=== PATIENT | female | born 1970 | race Caucasian/White ===

== ENCOUNTER 2024-11-03 13:14 | Outpatient (AMB) | payer MEDICARE, SELFPAY ==
--- NOTE | 2024-11-03 13:17 | MHC.PC.OV ---
Vital Signs 11/03/24 13:23 Height 5 ft 1.02 in Weight 128 lb 2 oz BMI 24.2 BP 98/74 Blood Pressure Location Rt brachial Position Sitting Pulse 104 H Pulse Source Pulse Oximeter Pulse Oximetry (%) 98 Oxygen Delivery Method Room Air Intake Visit Reasons: est care Intake Note: New patient visit Ram Press Operator Required: No Allergies No Known Allergies Allergy (Verified 11/03/24 13:17) Medication List - Last Reconciled 11/03/24 by Lola Grace PA-C bupropion HCl SR (Wellbutrin SR) 150 mg PO BID estradiol 1 mg PO DAILY hydroxyzine HCl 25 mg PO BEDTIME lamotrigine 100 mg PO BID risperidone 2 mg PO DAILY Tobacco use date assessed: 11/03/24 Dental Screening Dental Screen Date: 11/03/24 Did you have a dental visit in the last 12 months?: Yes Did you have a dental problem in the last 6 months where you did not have access to dental care?: No Was dental information given to patient?: Patient has dentist HPI est care HPI Details Patient is a 54-year-old female with a significant past medical history of anxiety, depression, complicated grief, migraines, back and neck pain presenting today to [facility]. She is transferring from [facility]. Psych: Currently managed with Wellbutrin, hydroxyzine prn, lamotrigine and risperidone prn. Follows with [facility]. She states that she used to have more ?normal ?mood disorder around her menses and was on Lamictal for years because of that. She states that she had a major, traumatic life experience that she can not discuss happen a few years ago and since then has started to take the hydroxyzine as needed, was put on Wellbutrin and the risperidone for really bad days. No current SI/HI. 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 He does not want her to go back to work. She lives at home with her and her 25-year-old daughter who just became a nurse practitioner. Her other daughter is 34 and an mine engineering manager. CV: Blood pressure today in the office is 98/74. States that she has never had issues with hypertension or dyslipidemia. No chest pain, shortness on breath or palpitations. At times she does get lightheaded if she gets up quickly. She does admit that she possibly does not drink enough water. Neuro: follows with neurology and pss for botox injections to control her migraines. She has had an MRI. Mammo: UTD, collier- does not want to do them anymore Animal Shelter Worker: Dr. Meyer UTVickie Colonoscopy: never had, does not want to do them PFS Surgical History H/O breast augmentation Family History (Updated 11/03/24 @ 13:22 by Britany Powers CMA) Father Migraine Mother Dementia Pseudomyxoma peritonei Sister Substance abuse Other FH: mental illness Social History (Updated 11/03/24 @ 13:23 by Britany Powers CMA) Housing: House Alcohol intake: never Patient Tobacco Use Status: Never used Tobacco e-Cigarette/Vaping Use: Never Used Second Hand Smoke Exposure: No service: No Current occupational status: retired Cognitive needs: No Hearing needs: No Vision needs: No Physical exam (Primary Care) Vital Signs: Last Vital Signs Pulse 104 H 11/03/24 13:23 BP 98/74 11/03/24 13:23 Pulse Ox 98 11/03/24 13:23 Oxygen Delivery Method Room Air 11/03/24 13:23 BMI result Body Mass Index 24.2 Tobacco/Smoking Status: Tobacco use Status Tobacco use date assessed 11/03/24 11/03/24 13:30 Patient Tobacco Use Status Never used Tobacco 11/03/24 13:30 e-Cigarette/Vaping Use Never Used 11/03/24 13:30 Const Orientation/consciousness: patient oriented x3 HENMT Ears: hearing grossly normal bilaterally Neck Thyroid: Thyroid normal Lymphatic: no lymphadenopathy noted Resp Auscultation: clear to auscultation bilaterally Cardio Rate: regular rate Rhythm: regular rhythm Heart sounds: S1 normal heart sound present and S2 normal heart sound present GI Inspection: Yes normal to inspection Palpation (GI): Soft to palpation and Other GI palpation findings present (nontender, no cva tenderness) Auscultation: normoactive bowel sounds Rectal Exam - Female: deferred Skin General skin exam: no rashes or lesions noted Neuro General: patient oriented x3, gait normal and no focal motor deficits Office Procedures EKG Details: EKG today is normal sinus rhythm at a rate of 86 beats per minute with nonspecific STT wave abnormalities. No prior study to compare. EKG interpreted myself and Dr. French. [id number], Complete Results Reviewed Results Reviewed: EKG in office Coding Level of Care Code New Pt Level 4 (13409) Complex EM visit Add On G2211 Diagnoses Anxiety with depression F41.8 Migraine headache with aura G43.109 Episodic lightheadedness R42 CPT Codes EKG - CPT: 28451-[id number], Complete ([id number]) Assessment & Plan Assessment & Plan (1) Anxiety with depression: Code(s): F41.8 - Other specified anxiety disorders Category: Medical Plan: Following with the [facility] (2) Migraine headache with aura: Code(s): G43.109 - Migraine with aura, not intractable, without status migrainosus Category: Medical Plan: Following with [facility] for Botox injections. Currently controlled with injections. (3) Episodic lightheadedness: Code(s): R42 - Dizziness and giddiness Category: Medical Plan: EKG in office listed above. Orthostatic WNL. Advised patient to hydrate. Labs ordered. We will follow up pending test results. Orders: Orders Comprehensive Met. Panel Today F41.8 - Other specified anxiety disorders, G43.109 - Migraine with aura, not intractable, without status migrainosus, R42 - Dizziness and giddiness Complete Blood Count Auto Diff Today F41.8 - Other specified anxiety disorders, G43.109 - Migraine with aura, not intractable, without status migrainosus, R42 - Dizziness and giddiness Vitamin B12 and Folate Today F41.8 - Other specified anxiety disorders, G43.109 - Migraine with aura, not intractable, without status migrainosus, R42 - Dizziness and giddiness AMB EKG-In Office Today R42 - Dizziness and giddiness TSH reflex Free T4 Today F41.8 - Other specified anxiety disorders, G43.109 - Migraine with aura, not intractable, without status migrainosus, R42 - Dizziness and giddiness Lipid Panel Today F41.8 - Other specified anxiety disorders, G43.109 - Migraine with aura, not intractable, without status migrainosus, R42 - Dizziness and giddiness Magnesium Today F41.8 - Other specified anxiety disorders, G43.109 - Migraine with aura, not intractable, without status migrainosus, R42 - Dizziness and giddiness
[2024-11-03 13:23] VITALS: BP 98/74; PULSE 104; O2SAT 98; BMI 24.2
--- OUTSIDE RECORDS SUMMARY | 2024-11-09 02:20 | XMS_ITS | Continuity of Care Document ---
Author Organization [facility] Address [address] [place] [address] [address] [place] [phone] Phone Care Team Providers Care Rack Production Worker Name Role Phone James GRECO, SANTOS, Marty TOWNSEND Unavailable U navailable Advance Directives Directive Yes / No Effective Date File Name No Information Encounters Encounter Description Practice Location Reason(s) For Visit Diagnoses Date Provider Providers Copied on Encounter [facility], [address] [place] [address] [address], [place], [id number], tel:[phone] [facility] No Information 4 James GRECO, CARY GRAHAM. [address] [place] [address], [place], [place], [id number] , . tel:[phone] Family History Family Member Type Diagnosis Age At Onset No Information Payers Payer name Insurance type Covered alliance party ID Authoriza tion(s) No Information Social History Type Description Quantity Date Captured Comments Sex Female Smoking Status No Information Chief Complaint And Reason For Visit No Information Reason For Referral Reason For Referral No Information History Of Present Illness Encounter Date Complaint History Of Prese nt Illness No Information Functional Status Date Functional Assessmen t No Information Instructions Date Instruction Additional Infor mation No Information Assessments Type Assessment Date No Information Patient Care Teams Name Effective Dates (start - stop) Status Members No Information
== END 2024-11-03 14:23 | disposition home or self-care (01) ==
PROVIDERS: PCP Physician Assistant; Visit Provider Physician Assistant
DX: F41.8 Other specified anxiety disorders (principal); G43.109 Migraine with aura, not intractable, without status migrainosus; R42 Dizziness and giddiness

== ENCOUNTER → 2024-11-03 13:14 | Outpatient (BNVA) | payer MEDICARE, SELFPAY | PROVIDERS: PCP Physician Assistant; Visit Provider Physician Assistant | DX: Z13.6 Encounter for screening for cardiovascular disorders (principal); F41.8 Other specified anxiety disorders; R42 Dizziness and giddiness; G43.109 Migraine with aura, not intractable, without status migrainosus | CPT/HCPCS: 36415; 80053; 80061; 82607; 82746; 83735; 84443; 85025; 93005; 99202 ==

== ENCOUNTER 2024-11-03 14:22 | Outpatient (REF) | payer MEDICARE, SELFPAY ==
[2024-11-03 17:32] LABS: MANUAL DIFF FLAG NO
[2024-11-03 17:51] LABS: Basophils Percent Auto 0.7 % (0-2); Eosinophils Absolute Auto 0.1 X10*3/uL (0.0-0.4); Eosinophils Percent Auto 1.6 % (0-4); Hemoglobin 12.2 g/dl (12.0-16.0); Lymphocytes Absolute Auto 1.6 X10*3/uL (1.2-4.9); Lymphocytes Percent Auto 34.4 % (20-40); Mean Corpuscular HGB Conc 33.9 g/dl (31.0-35.0); Mean Corpuscular Hemoglobin 30.4 pg (27.0-33.0); Mean Corpuscular Volume 89.8 fL (80.0-98.0); Monocytes Absolute Auto 0.3 X10*3/uL (0.1-1.2); Monocytes Percent Auto 5.8 % (2-11); Neutrophils Absolute Auto 2.6 x10*3/uL (2.0-8.3); Neutrophils Percent Auto 57.5 % (45-73); Platelet Count 282 X10*3/uL (160-400); Red Blood Count 4.01 X10*6/uL (4.20-5.50); Red Cell Distribution Width 11.9 % (11.0-16.0); White Blood Count 4.5 X10*3/uL (4.8-10.8)
[2024-11-03 18:13] LABS: Alanine Aminotransferase 17 U/L (0-31); Albumin Level 4.4 g/dL (3.5-5.0); Alkaline Phosphatase 42 U/L (39-117); Anion Gap 9 (12-20); Aspartate Amino Transferase 22 U/L (5-31); Bilirubin Total 0.5 mg/dL (0.0-1.0); Blood Urea Nitrogen 11 mg/dL (9-16); Calcium 9.2 mg/dL (8.4-10.2); Carbon Dioxide 28 mmol/L (22-29); Chloride 107 mmol/L (96-108); Cholesterol 215 mg/dL (<200); Estimated Glomerular Filt Rate 48; Glucose Random 79 mg/dL (60-115); HDL Cholesterol 65 mg/dL (>40); LDL Cholesterol Calculated 136 mg/dL (<100); Magnesium 2.2 mg/dL (1.6-2.6); Potassium 3.7 mmol/L (3.3-5.1); Sodium 140 mmol/L (135-145); Total Protein 6.8 g/dL (6.5-8.0); Triglycerides 73 mg/dL (<150)
[2024-11-03 18:27] LABS: TSH reflex Free T4 1.61 uIU/mL (0.32-4.0)
[2024-11-03 18:41] LABS: Folate 11.6 ng/mL (> or = 4.0); Vitamin B12 775 pg/mL (200-900)
--- OUTSIDE RECORDS SUMMARY | 2024-11-09 04:03 | XMS_ITS | Continuity of Care Document ---
Author Organization [facility] Address [address] [place] [address] [address] [place] [phone] Phone Care Team Providers Care Environmental Services Coordinator Name Role Phone James GRECO, SANTOS, Marty TOWNSEND Unavailable U navailable Advance Directives Directive Yes / No Effective Date File Name No Information Encounters Encounter Description Practice Location Reason(s) For Visit Diagnoses Date Provider Providers Copied on Encounter [facility], [address] [place] [address] [address], [place], [id number], tel:[phone] [facility] No Information 4 James GRECO, CARY GRAHAM. [address] [place] [address], [place], [place], [id number] , . tel:[phone] Family History Family Member Type Diagnosis Age At Onset No Information Payers Payer name Insurance type Covered democrat ID Authoriza tion(s) No Information Social History [...]
== END 2024-11-03 14:23 | disposition home or self-care (01) ==
LOC: HO.WFDLDS 14:22
PROVIDERS: Visit Provider Physician Assistant
DX: Z13.89 Encounter for screening for other disorder (principal)
CPT/HCPCS: 36415; 80053; 80061; 82607; 82746; 83735; 84443; 85025

== ENCOUNTER 2025-04-18 08:40 | Outpatient (REF) | payer MEDICARE, SELFPAY ==
--- NOTE | ~2025-04-18 | US_ITS ---
EXAMINATION: MM DIAGNOSTIC DIGITAL BREAST TOMOSYNTHESIS, BILATERAL Limited left breast ultrasound. CLINICAL INFORMATION: Left breast palpable lump. Priors from outside institution. Patient has had a 20 pound weight loss. Right implant has moved laterally and the patient having implants redone in July. COMPARISON: Mammography: Comparison is made with relevant prior exams. TECHNIQUE: Digital breast mammography with tomosynthesis is performed in both the craniocaudal and mediolateral oblique views along with computer-aided detection (CAD). FINDINGS: The breasts are heterogeneously dense, which may obscure small masses (ACR BI-RADS breast composition Category c). Bilateral slightly distorted implants without gross abnormality. BB marker in the upper central breast in the area of patient's palpable left breast lump without underlying abnormality. There are no significant masses, abnormal calcifications, or other abnormalities. Targeted color Doppler ultrasound scanning in the area the patient's left breast palpable lump demonstrates a subdermal hypoechoic oval area looks like adjacent simple to minimally complicated cysts with intervening breast tissue. There is no internal vascular flow. This resides at 11:00 7 cm from nipple measures 6 x 4 x 6 mm. Results are provided to the patient at time of visit by the technologist. US/US breast LT limited mamm only IMPRESSION: Left: Area of adjacent simple to minimally complicated cysts with intervening breast tissue versus solid mass at 11:00 7 cm from the nipple. Recommend 6 month follow-up ultrasound for further evaluation of stability. Right: Benign. ASSESSMENT: BI-RADS BI-RADS 3 - Probably benign finding(s) - 6 month follow-up suggested RECOMMENDATION: 6 Month F/U This patient's information was entered into a reminder system with a target due date for their next mammogram. Electronically signed by: Dannielle Sy DO 04/18/2025 10:54 AM EDT
== END 2025-04-18 08:41 | disposition home or self-care (01) ==
LOC: HO.MAMMO 08:40
PROVIDERS: PCP Physician Assistant; Visit Provider Physician Assistant
DX: N63.22 Unspecified lump in the left breast, upper inner quadrant (principal)
CPT/HCPCS: 76642; 77062; 77066

== ENCOUNTER → 2025-04-18 09:30 | Outpatient (BNV) | payer MEDICARE, SELFPAY | PROVIDERS: PCP Physician Assistant; Visit Provider Internal Medicine | DX: N63.20 Unspecified lump in the left breast, unspecified quadrant (principal); N60.12 Diffuse cystic mastopathy of left breast | CPT/HCPCS: 76642; 77066; G0279 ==

== ENCOUNTER 2025-08-17 09:58 | Outpatient (REF) | payer MEDICARE, SELFPAY ==
[2025-08-17 14:42] LABS: MANUAL DIFF FLAG NO
[2025-08-17 14:44] LABS: Hematocrit 36.8 % (37.0-47.0); Hemoglobin 12.5 g/dl (12.0-16.0); Imm Gran Abs Auto 0.01 X10*3/uL (0.00-0.03); Imm Gran Pct Auto 0.2 % (0.0-0.4); Lymphocytes Absolute Auto 1.1 X10*3/uL (1.2-4.9); Mean Corpuscular HGB Conc 34.0 g/dl (31.0-35.0); Mean Corpuscular Hemoglobin 31.3 pg (27.0-33.0); Mean Corpuscular Volume 92.2 fL (80.0-98.0); NRBC Abs Auto 0.000 X10*3/uL (0.0-0.012); NRBC Pct Auto 0.0 /100WBC (0.0-0.2); Platelet Count 266 X10*3/uL (160-400); Red Blood Count 3.99 X10*6/uL (4.20-5.50); White Blood Count 4.6 X10*3/uL (4.8-10.8)
[2025-08-17 14:51] LABS: INTERNATIONAL NORM RATIO 0.8 (0.9-1.1); Prothrombin Time 9.6 SEC (10.9-12.4)
[2025-08-17 15:04] LABS: Alanine Aminotransferase 33 U/L (0-31); Albumin Level 4.3 g/dL (3.5-5.0); Alkaline Phosphatase 57 U/L (39-117); Anion Gap 8 (12-20); Aspartate Amino Transferase 39 U/L (5-31); Blood Urea Nitrogen 12 mg/dL (9-16); Calcium 8.9 mg/dL (8.4-10.2); Carbon Dioxide 30 mmol/L (22-29); Chloride 107 mmol/L (96-108); Estimated Glomerular Filt Rate 55; Potassium 4.2 mmol/L (3.3-5.1); Sodium 141 mmol/L (135-145); Total Protein 6.6 g/dL (6.5-8.0)
== END 2025-08-17 09:59 | disposition home or self-care (01) ==
LOC: HO.WFDLDS 09:58
PROVIDERS: PCP Physician Assistant; Visit Provider Physician Assistant
DX: Z01.818 Encounter for other preprocedural examination (principal); Z98.82 Breast implant status; Z79.899 Other long term (current) drug therapy
CPT/HCPCS: 36415; 80053; 85025; 85610; 93005; 99212

== ENCOUNTER 2025-08-17 09:58 | Outpatient (AMB) | payer MEDICARE, SELFPAY ==
--- NOTE | 2025-08-17 10:00 | A.OFFPC_ITS ---
Vital Signs 08/17/25 10:12 Height 5 ft 1.02 in Weight 133 lb BMI 25.1 BP 104/66 Blood Pressure Location Lt brachial Position Sitting Respiration 12 Pulse 81 Pulse Source Pulse Oximeter Temp 97.7 F Temp Source Oral Pulse Oximetry (%) 98 Oxygen Delivery Method Room Air Intake Visit Reasons: Breast Augmentation surgery Intake Note: Breast Augmentation. Dr Ramos, plastic surgeon. Hardware Installer Required: No Allergies No Known Allergies Allergy (Verified 08/17/25 10:03) Medication List - Last Reconciled 08/17/25 by Lola Grace PA-C bupropion HCl SR (Wellbutrin SR) 150 mg PO BID estradiol 1 mg PO DAILY hydroxyzine HCl 25 mg PO BEDTIME lamotrigine 100 mg PO BID risperidone 2 mg PO DAILY Tobacco use date assessed: 11/03/24 Dental Screening Dental Screen Date: 11/03/24 HPI Breast Augmentation surgery HPI Details Patient is a 55-year-old female with a significant past medical history of anxiety, depression, complicated grief, migraines, back and neck pain presenting today for a pre op. She is scheduled with Dr. Ramos on 08/22/25 at [facility] for a breast augmentation. She had a previous augmentation 24 years ago. She is up-to-date on her mammogram and recently had an ultrasound for a possible left breast lump which was felt to be the plug of the saline implant. She will be having silicone implants. She denies any chest pain, shortness on breath or palpitations. No dizziness. No issues with previous surgery. No issues with previous episodes of anesthesia. No issues with bleeding in the past. She works out every day without any difficulty. She can go up and down a flight of stairs without issue and does cardio and weightlifting. Psych: Currently managed with Wellbutrin, hydroxyzine prn, lamotrigine and risperidone prn. Follows with [facility]. No current SI/HI. 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 He does not want her to go back to work. She lives at home with her and her 25-year-old daughter who just became a nurse practitioner. Her other daughter is 34 and an contractor general engineering. CV: Blood pressure today in the office is 104/66. States that she has never had issues with hypertension or dyslipidemia. No chest pain, shortness on breath or palpitations. Neuro: follows with neurology and pss for botox injections to control her migraines. She has had an MRI. Mammo: UTD, collier- Wastewater Analyst: Dr. Betsy FARLEY Colonoscopy: never had, does not want to do them [facility] Surgical History H/O breast augmentation Family History Father Migraine Mother Dementia Pseudomyxoma peritonei Sister Substance abuse Other FH: mental illness Social History (Updated 08/17/25 @ 10:13 by Britany Powers CMA) Housing: House Alcohol intake: never Patient Tobacco Use Status: Never used Tobacco e-Cigarette/Vaping Use: Never Used Second Hand Smoke Exposure: No Use of substances other than those prescribed or required for medical reasons: No service: No Current occupational status: retired Cognitive needs: No Hearing needs: No Vision needs: No Questionnaire PHQ-9 Over the last 2 weeks, how often have you been bothered by any of the following problems? 1. Little interest or pleasure in doing things: nearly every day 2. Feeling down, depressed, or hopeless: nearly every day 3. Trouble falling or staying asleep, or sleeping too much: nearly every day 4. Feeling tired or having little energy: nearly every day 5. Poor appetite or overeating: nearly every day 6. Feeling bad about yourself - or that you are a failure or have let yourself or your family down: nearly every day 7. Trouble concentrating on things, such as reading the newspaper or watching television: nearly every day 8. Moving or speaking so slowly that other people could have noticed. Or the opposite - being so fidgety or restless that you have been moving around a lot more than usual: not at all Source: Developed by Drs. Marty Day, Ondina Rojas, Omar Piper and colleagues, with an educational feliz from [employer]. Physical exam (Primary Care) Vital Signs: Last Vital Signs Temp 97.7 F 08/17/25 10:12 Pulse 81 08/17/25 10:12 Resp 12 08/17/25 10:12 BP 104/66 08/17/25 10:12 Pulse Ox 98 08/17/25 10:12 Oxygen Delivery Method Room Air 08/17/25 10:12 BMI result Body Mass Index 25.1 Tobacco/Smoking Status: Tobacco use Status Tobacco use date assessed 11/03/24 08/17/25 10:02 Patient Tobacco Use Status Never used Tobacco 08/17/25 10:13 e-Cigarette/Vaping Use Never Used 08/17/25 10:13 Const Orientation/consciousness: patient oriented x3 HENMT Ears: hearing grossly normal bilaterally Neck Thyroid: Thyroid normal Lymphatic: no lymphadenopathy noted Resp Auscultation: clear to auscultation bilaterally Cardio Rate: regular rate Rhythm: regular rhythm Heart sounds: S1 normal heart sound present and S2 normal heart sound present Skin General skin exam: no rashes or lesions noted Neuro General: patient oriented x3, gait normal and no focal motor deficits Office Procedures EKG Details: EKG today in office is normal sinus rhythm at a rate of 55 beats per minute with nonspecific STT wave abnormalities. No significant change from prior study. EKG interpreted myself and Dr. Ramirez. [id number], Complete Results Reviewed Results Reviewed: Laboratory Tests 11/03/24 14:25 WBC 4.5 L RBC 4.01 L Hgb 12.2 Hct 36.0 L Plt Count 282 Sodium 140 Potassium 3.7 Chloride 107 Carbon Dioxide 28 Anion Gap 9 L BUN 11 Creatinine 1.18 Estimated GFR 48 Random Glucose 79 Calcium 9.2 Magnesium 2.2 Total Bilirubin 0.5 Coding Level of Care Code Est Pt Level 4 (12304) Complex EM visit Add On G2211 Diagnoses Pre-op exam Z01.818 H/O breast augmentation Z98.82 CPT Codes EKG - CPT: 68384-Bhzbxemsygvmwwzlh, Complete ([id number]) Assessment & Plan Assessment & Plan (1) Pre-op exam: Code(s): Z01.818 - Encounter for other preprocedural examination Category: Medical Plan: Patient is at average risk for this moderate at risk procedure. She is cleared for breast augmentation surgery. I have ordered labs for her to complete today including CBC, CMP, PT INR. We will fax over updated labs once they are in the system. Previous labs from within the year have been normal. EKG is normal sinus rhythm at a rate of 74 beats per minute with nonspecific STT wave abnormalities. No significant change from prior study. (2) H/O breast augmentation: Code(s): Z98.82 - Breast implant status Category: Surgical Plan: As above Orders: Orders Comprehensive Met. Panel Today Z01.818 - Encounter for other preprocedural examination, Z98.82 - Breast implant status Prothrombin Time INR Today Z01.818 - Encounter for other preprocedural examination, Z98.82 - Breast implant status Complete Blood Count Auto Diff Today Z01.818 - Encounter for other preprocedural examination, Z98.82 - Breast implant status
[2025-08-17 10:12] VITALS: BP 104/66; PULSE 81; RESP 12; TEMP 36.5; O2SAT 98; BMI 25.1
--- OUTSIDE RECORDS SUMMARY | 2025-08-17 11:48 | XMS_ITS | Clinical Summary ---
Author Organization [facility] Address [address] [place] [address] Phone Care Team Providers Care Jewellery Designer Name Role Phone Unavailable Primary Care Provider Unavailabl e Allergies No known active allergies Medications buPROPion XL (WELLBUTRIN XL) 150 mg 24 hr tablet Take 1 tablet (150 mg total) by mouth 2 (two) times a day. Do not crush, chew, or split. Active lamoTRIgine (LaMICtal) 25 mg chewable tablet Take 2 tablets (50 mg total) by mouth 2 (two) times a day. Active estradioL (ESTRACE) 0.5 mg tablet Take 1 tablet (0.5 mg total) by mouth 2 (two) times a day. Active onabotulinumtox Debora (Botox) 200 unit injection Inject 200 Units into the shoulder, thigh, or buttocks every 3 (three) months. Active Surgical History Surgery Date Site/Laterality Comments OTHER SURGICAL HISTORY BREAST ENHANCEMENT SURGERY W IMPLANT Medical History Medical History Date Comments PONV (postoperative nausea and vomiting) Anxiety Depression Social History Tobacco Use Types Packs/Day Years Used Date Smoking Tobacco: Never Assessed Comments Unknown Sex and Gender Information Value Date Recorded Sex Assigned at Not on file Legal Sex Female 3:40 PM EDT Gender Identity Not on file Sexual Orientation Not on file Obstetrics History Last Filed Vital Signs Vital Sign Reading Time Taken Comments Blood Pressure - - Pulse - - Temperature - - Respiratory Rate - - Oxygen Saturation - - Inhaled Oxygen Concentration - - Weight 54.4 kg (120 lb) 08/09/2025 2:00 PM EDT Height 157.5 cm (5' 2 ) 08/09/2025 2:00 PM EDT Body Mass Index 21.95 08/09/2025 2:00 PM EDT Plan of Treatment Upcoming Encounters Date Type Department Care Team (Latest Contact Info) Description 08/22/2025 7:30 AM EDT Hospital Encounter [facility] OR [address] [place] [phone] Bernie Ramos MD [address] [place] [address] 08/22/2025 7:30 AM EDT - 08/22/2025 10:30 AM EDT Surgery [facility] Main OR [address] [place] [id number] Bernie Ramos MD [address] [place] [address] BREAST IMPLANT EXCHANGE AND MASTOPEXY [65371 (CPT ) +1 more] Scheduled Procedures Name Priority Associated Diagnoses Date/Ti me MASTOPEXY Encounter for cosmetic surgery 08/22/2025 7:30 AM EDT Health Maintenance Due Date Last Done Comments Breast Cancer Screening 1970 DTaP,Tdap,and Td Vaccines (1 - Tdap) 1989 Hepatitis B Vaccines (1 of 3 - 19+ 3-dose series) 1989 Cervical Cancer Screening: P ap Smear 1991 Pneumococcal Vaccine: 50+ Ye ars (1 of 1 - PCV) 2020 Zoster Vaccines (1 of 2) 2020 Colorectal Cancer Screening: Colonoscopy 09/25/2024 HIV Screening 09/25/2024 Hepatitis C Screening 09/25/2024 Social Influencers of Health Screening 09/25/2024 Depression Screening 11/30/2024 COVID-19 Vaccine ( - 2023-2 5 season) 2025 Influenza Vaccine (#1) 2025 RSV Immunization Adult Patie nts (1 - 1-dose 75+ series) 2045 HIB Vaccines Aged Out No longer eligi ble based on patient's age to complete this topic HPV Vaccines Aged Out No longer eligi ble based on patient's age to complete this topic Hepatitis A Vaccines Aged Out No long er eligible based on patient's age to complete this topic IPV Vaccines Aged Out No longer eligi ble based on patient's age to complete this topic MMR Vaccines Aged Out No longer eligi ble based on patient's age to complete this topic Meningococcal ACWY Vaccine Aged Out N o longer eligible based on patient's age to complete this topic Meningococcal B Vaccine Aged Out No l onger eligible based on patient's age to complete this topic RSV Immunization Patients Un chente 20 months Aged Out No longer eligible b ased on patient's age to complete this topic Varicella Vaccines Aged Out No longer eligible based on patient's age to complete this topic
== END 2025-08-17 10:34 | disposition home or self-care (01) ==
LOC: HO.HMCFM 09:59
PROVIDERS: PCP Physician Assistant; Visit Provider Physician Assistant
DX: Z01.818 Encounter for other preprocedural examination (principal); Z98.82 Breast implant status